=== PATIENT | male | born 1970 | race Asian ===

== ENCOUNTER 2024-01-17 10:50 | Day surgery (SDC) | payer OTHER ==
[2024-01-02 15:38] VITALS: BMI 20.7
[2024-01-17 13:19] VITALS: TEMP 97.7
[2024-01-17 13:31] VITALS: BP 130/81; PULSE 90; RESP 16
== END 2024-01-17 12:30 | disposition home or self-care (01) ==
LOC: FASU-ENDO 10:50
PROVIDERS: ATTEND Internal Medicine Gastroenterology
PROC: 0DBN8ZX Excision of Sigmoid Colon, Via Natural or Artificial Opening Endoscopic, Diagnostic (ICD-10-PCS; principal; 2024-01-17 11:38)
DX: Z12.11 Encounter for screening for malignant neoplasm of colon (principal); K64.1 Second degree hemorrhoids
CPT/HCPCS: 88305-TC